=== PATIENT | female | born 1995 | race Two or more races ===

== ENCOUNTER 2019-04-16 11:27 | Emergency (ER) | payer OTHER ==
[~2019-04-16] VITALS: Ht 160 cm; Wt 88.5 kg
[2019-04-16] MEDS ORDERED: PRENATAL PLUS1 EAC1 (11:47)
== END 2019-04-16 16:18 | disposition home or self-care (01) ==
LOC: ER 11:27
DX: R00.2 Palpitations (principal); F06.4 Anxiety disorder due to known physiological condition

== ENCOUNTER 2019-09-27 11:43 | Inpatient (IN) | payer OTHER ==
[~2019-09-27] VITALS: Ht 160 cm; Wt 100.2 kg
[~2019-09-27 11:43] MED LIST: PRENATAL PLUS1 EAC1
[2019-11-01] MEDS ORDERED: RHOGAM ULTR1500 UNIT IM (12:49)
== END 2019-11-02 11:45 | disposition home or self-care (01) | DRG 807 ==
LOC: OB/GYN 10-24 12:00 → LDR 10-31 10:59 → OB/GYN 10-31 12:00
PROVIDERS: ADMIT Specialist
PROC: 10E0XZZ Delivery of Products of Conception, External Approach (ICD-10-PCS; principal; 2019-10-31)
PROC: 10907ZC Drainage of Amniotic Fluid, Therapeutic from Products of Conception, Via Natural or Artificial Opening (ICD-10-PCS; 2019-10-31)
PROC: 0W8NXZZ Division of Female Perineum, External Approach (ICD-10-PCS; 2019-10-31)
PROC: 3E033VJ Introduction of Other Hormone into Peripheral Vein, Percutaneous Approach (ICD-10-PCS; 2019-10-31)
PROC: 4A1HXCZ Monitoring of Products of Conception, Cardiac Rate, External Approach (ICD-10-PCS; 2019-10-31)
DX: O80 Encounter for full-term uncomplicated delivery (principal); Z37.0 Single live birth; Z3A.40 40 weeks gestation of pregnancy

== ENCOUNTER 2021-11-07 15:19 | Outpatient (CLI) | payer OTHER ==
[~2021-11-07 15:19] MED LIST changes: +RHOGAM ULTR1500 UNIT IM
== END 2021-11-07 16:37 | disposition home or self-care (01) ==
LOC: PRENATAL 15:19
PROVIDERS: ATTEND Obstetrics & Gynecology Maternal & Fetal Medicine
DX: O35.0XX1 Maternal care for (suspected) central nervous system malformation in fetus, fetus 1 (principal); O35.3XX1 Maternal care for (suspected) damage to fetus from viral disease in mother, fetus 1; O98.512 Other viral diseases complicating pregnancy, second trimester; O99.212 Obesity complicating pregnancy, second trimester; Z36.89 Encounter for other specified antenatal screening; Z3A.24 24 weeks gestation of pregnancy